=== PATIENT | female | born 1960 | race Caucasian/White ===

== ENCOUNTER → 2021-03-25 | Day surgery (SDC) | payer MEDICARE ==
[~2021-03-25] MED LIST: ATIVAN1 MG PO; BACLOFEN10 MG PO; CELEXA40 MG PO; COZAAR100 MG PO; GABAPENTIN300 MG PO; HYDROCODON-ACE1 EAC4 PO; IBUPROFEN800 MG PO; METOPROLOL TART50 MG PO; PROVENTIL HFA6.7 GM INH; SIMVASTATIN20 MG PO; VENLAFAXINE HC150 M1 PO
== END | disposition home or self-care (01) ==
LOC: OR 06:02
DX: K62.1 Rectal polyp (principal); K64.0 First degree hemorrhoids; K59.09 Other constipation; I10 Essential (primary) hypertension; E78.5 Hyperlipidemia, unspecified; E78.00 Pure hypercholesterolemia, unspecified; F17.200 Nicotine dependence, unspecified, uncomplicated; Z79.899 Other long term (current) drug therapy; Z79.1 Long term (current) use of non-steroidal anti-inflammatories (NSAID)
CPT/HCPCS: J2704; J7040